=== PATIENT | female | born 1990 | race Caucasian/White ===

== ENCOUNTER 2016-10-18 11:18 | Emergency (ER) | payer MEDICAID ==
--- NOTE | 2016-10-18 11:43 | ED Physician Chart ---
Chief Complaint/HPI - Patient Information Date Seen:: 10/18/16 Time Seen:: 11:30 Chief Complaint:: Diffuse bodily rash for 2-3 days. History of Present Illness:: Pt has noticed diffuse pruritic rash in all 4 extremites and torso for 2-3 days. Pt has taken Benadryl, and her rash has improved. Last dose of Benadryl was taken at 0400 today. Pt denies any use of new medications or ingestion of any unusual food or liquid. No new clothes, new detergent, chemicals, animals, plants, environmental exposure, etc. No dyspnea or lightheadedness. No N/V/D. Allergies:: Allergies Allergy/AdvReac Type Severity Reaction Status Date / Time MDX No Known Allergies - Nka Allergy Verified 05/28/15 14:01 [No Known Allergies - Nka] Vitals:: see Nurse Note. Historian:: Patient Family MD/PCP:: Dr. Martin. LMP:: 10/11/16 Review:: Nurse's Note Reviewed Review of Systems - Review of Systems General/Constitutional: No fever, No chills, No weight loss, No weakness, No diaphoresis, No edema, No loss of appetite Skin: Rash, No bruising Head: No headache, No light-headedness Eyes: No loss of vision, No pain, No diplopia ENT: No earache, No nasal drainage, No sore throat Neck: No neck pain, No swelling, No thyromegaly, No stiffness, No mass noted Cardio Vascular: No chest pain, No palpitations, No edema Pulmonary: No SOB, No cough, No wheezing GI: No nausea, No vomiting, No pain G/U: No dysuria, No frequency, No hematuria [employer] Hel[employer]: No vaginal discharge, No abnormal vaginal bleed Musculoskeletal: No bone or joint pain, No back pain, No muscle pain Endocrine: No polyuria, No polydipsia Psychiatric: No prior psych history Hematopoietic: No bruising, No lymphadenopathy Allergic/Immuno: Urticaria, No angioedema Neurological: No syncope, No focal symptoms, No weakness, No paresthesia, No headache, No dizziness, No confusion Past Medical History - Past Medical History Past Medical History: No significant medical hx Family History: Heart disease (PGM), Diabetes Melitus (father) Social History: Non Smoker, No Alcohol, No Drug Use, Single, Employed, Other ( lives with her children) 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 Surgical History: Cholecystectomy ('10), other (Tonsillectomy in childhood.) Psychiatricy History: None Medication: Reviewed Family Medical History - Family Member Grandmother Living Status: Still Living Hx Family Diabetes: Yes Father Ethnicity: Living Status: Still Living Hx Family Diabetes: Yes Physical Exam - Physical Examination General/Constitutional: Awake, Well-developed, well-nourished, Alert, No distress, GCS 15, Non-toxic appearing, Ambulatory Other Gen/Cons comments:: Breathes comfortably, speaks clearly, interacts normally, and ambulates without difficulty. Head: Atraumatic Eyes: Lids, conjuctiva normal, PERRL, EOMI Skin: No ecchymosis, Well hydrated, No lymphadenopathy Other Skin comments:: There are sparingly distributed urticarial lesions noticed in torso and all 4 extremities. Otherwise, unremarkable. ENMT: External ears, nose nl, Nasal exam nl, Lips, teeth, gums nl, Oropharynx nl Neck: Nontender, Full ROM w/o pain, No nuchal rigidity, No mass, No stridor Respiratory: Nl effort/Exclusion, Clear to Auscultation, No Wheeze/Rhonchi/Rales Cardio Vascular: RRR, No murmur, gallop, rubs GI: No tenderness/rebounding/guarding, No organomegaly, No hernia, Normal BS's, Nondistended, No mass/bruits Other GI comments:: Obese but soft. Extremities: No tenderness or effusion, Full ROM, normal strength in all extremities, No edema, Normal digits & nails Neuro/Psych: Alert/oriented (oriented x 3), Judgement/insight normal, Mood normal, Normal gait, No focal deficits ED Septic Shock - . Is Septic Shock (SBP<90, OR Lactate>4 mmol\L) present?: No Reassessment (Disposition) - Reassessment Reassessment:: 1255 Pt feels much better. Skin rash has subsided. Pt requests to go home now and does not want further observation/management in hospital. Aftercare instructions have been given. Reassessment Condition:: Improved - Diagnosis Diagnosis:: Urticaria, stable and much improved. - Aftercare/Follow up Instructions Aftercare/Follow-Up Instructions:: Refer to Discharge Instructions Notes:: Bedrest for today. Benadryl 50 mg po q6h prn for urticaria. Drowsiness precautions given with the use of Benadryl. Avoid exposure to any potential allergens, if identified. F/U with PCP Dr. Martin in one day for recheck. Return to ER immediately if condition worsens or if any further questions/problems. Medication Prescribed:: Pepcid 20 mg tab one tab po q12h as directed. D-10 R-0 - Patient Disposition Discharge/Transfer:: Home Time:: 13:00 Condition at Disposition:: Stable, Improved ED Discharge Plan - Patient Disposition Admit/Discharge/Transfer: PT DISCHARGED HOME Condition at Disposition: Improved Instructions: Crow Additional Instructions: DISCHARGE: Patient given medication reconciliation form and D/C instructions. Patient verbalized understanding. MD discussed with patient the results and treatment provided. Ambulatory with steady gait for discharge to home. Patient in stable condition, ID band removed. IV catheter removed, intact and dressing applied, no active bleeding. Rx of Pecid given. All belongings sent with patient. Accepting Physician: Carlos Hope [Active] -
== END 2016-10-18 13:05 | disposition home or self-care (01) ==
LOC: ER 11:18
DX: L50.9 Urticaria, unspecified (principal)
CPT/HCPCS: 99284; 96374; J3490; Z7502